=== PATIENT | female | born 1955 | race Asian ===

== ENCOUNTER 2016-11-13 11:15 | Day surgery (SDC) | payer OTHER ==
[~2016-11-13] VITALS: Ht 162.6 cm; Wt 57.7 kg
[2016-11-13 12:36] VITALS: Ht 162.6 cm; Wt 57.7 kg
[2016-11-13] MEDS ORDERED: AMLO-218 PO (12:43)
[2016-11-13] MEDS ORDERED: ZOC10 PO (12:43)
[2016-11-13] MEDS ORDERED: ATEN50TA PO (12:43)
[2016-11-13] MEDS ORDERED: LIDOCAINE 2% (SDV) 5 ML INJ ONE (14:14)
[2016-11-13] MEDS ORDERED: PROPOFOL 40 ML ONE (14:14)
[2016-11-13 14:35] VITALS: BP 139/67; PULSE 62; RESP 24
[2016-11-13 15:45] VITALS: BP 144/65; RESP 20
--- NOTE | 2016-11-13 16:59 | GILP ---
DATE OF PROCEDURE: 11/13/2016 NAME OF PROCEDURE: Coloscopy with snare polypectomy. SURGEON: Keith Schumacher MD. HISTORY AND INDICATIONS: The patient is being evaluated for colorectal cancer. PREMEDICATION: Monitored anesthesia care by anesthesiologist. INSTRUMENT USED: Olympus colonoscope. PREPARATION: Adequate. TECHNIQUE: After informed consent, with the patient/relatives understanding the procedure, its indic ations potential risks and complications, including but not limited to: allergic reaction, bleeding, perforation, infection, missed lesions and after all pertinent questions were answered to the patie nt's satisfaction, the patient/relatives signed the witnessed informed consent. Following this, premedication was administered slowly IV push by under careful cardiovascular and re spiratory monitoring with pulse oximetry, automatic blood pressure and pilling machine operator. Once the sedativ e effect was achieved, the patient was placed in the left lateral decubitus position, digital rectal examination was performed. The colonoscope was then introduced and advanced under visual control th roughout all segments of the colon including: the rectum, sigmoid, descending colon, splenic flexure , transverse colon, hepatic flexure, ascending colon and finally reaching the cecum which was clearl y identified by transillumination, finger indentation and the ileocecal valve. Careful examination o f the mucosa of the lower gastrointestinal tract both on insertion as well as withdrawal of the inst rument disclosed the following findings: Rectal Examination: No evidence of perirectal disease, no masses. Colonic Mucosa: Remarkable for an The colonic mucosa remarkable for an 8 mm polyp in the area of the rectum which was snared and retrieved upon completion of examination and withdrawal of the instrume nt. The remainder of the colonic mucosa is unremarkable. The ileocecal valve was clearly identifie d and appears unremarkable. The instrument was withdrawn reexamining the mucosa in detail. No additional abnormalities are note d with exception of moderate sized internal hemorrhoids. The patient tolerated the procedure well and was transferred out of the [facility]oscopy [facility] awake and in good condition to continue recovery under observation. IMPRESSION: 1. An 8 mm polyp in the rectum, snared and retrieved. 2. Small internal hemorrhoids. PLAN: Pathology will be reviewed it as soon as available. Further recommendation will depend on césar jenkins's clinical course as well as review of biopsies. Annual Hemoccult stool testing is recommende d and a surveillance colonoscopy in 3 years is recommended as well. Dictated By: KEITH SCHUMACHER MS/NTS Conf#: [id number] DID#: [id number]
== END 2016-11-13 15:42 | disposition home or self-care (01) ==
LOC: GIL 11:15
PROVIDERS: ATTEND Internal Medicine Gastroenterology
DX: Z12.11 Encounter for screening for malignant neoplasm of colon (principal); K62.1 Rectal polyp; K64.8 Other hemorrhoids; I10 Essential (primary) hypertension; E78.5 Hyperlipidemia, unspecified
CPT/HCPCS: 45385; 88305; Z7610